=== PATIENT | female | born 1985 | race Caucasian/White ===

== ENCOUNTER 2017-01-05 19:03 | Emergency (ER) | payer OTHER ==
[~2017-01-05] VITALS: Ht 162.6 cm; Wt 56.4 kg
[2017-01-05 19:05] VITALS: BP 109/69
[2017-01-05] MEDS ORDERED: FLUORESCEIN OPHTHALMIC 1 MG STRIP ONE (19:24)
[2017-01-05] MEDS ORDERED: PROPARACAINE OPHTH 0.5%, 15ML ONE (19:24)
== END 2017-01-05 20:35 | disposition home or self-care (01) ==
LOC: ED 20:29
DX: T15.02XA Foreign body in cornea, left eye, initial encounter (principal)
CPT/HCPCS: 65222